=== PATIENT | female | born 1965 | race Caucasian/White ===

== ENCOUNTER → 2024-07-11 | Outpatient (CLI) | payer OTHER, SELFPAY ==
--- NOTE | 2024-07-11 10:46 | VDLE_ITS ---
Reason For Study Reason For Study: Bilateral leg pain RIGHT LEFT CFV is compressible, spontaneous, phasic, competent CFV is compressible, spontaneous, phasic, competent, and demonstrates normal augmentation. and demonstrates normal augmentation. FV is compressible, spontaneous, phasic, competent FV is compressible, spontaneous, phasic, competent and demonstrates normal augmentation. and demonstrates normal augmentation. POP V is compressible, spontaneous, phasic, competent POP V is compressible, spontaneous, phasic, competent and demonstrates normal augmentation. and demonstrates normal augmentation. T/P Trunk is compressible. T/P Trunk is compressible. PTV is compressible. PTV is compressible. RT PerV is compressible. LT PerV is compressible. GSV previously ablated. GSV previously ablated. SFJ is competent and measures 0.33 cm. SFJ is competent and measures 0.60 cm. ASV at knee is INCOMPETENT for greater than 0.5 ASV proximal calf is INCOMPETENT for greater than 0.5 seconds and measures 0.18 x 0.19 cm. seconds and measures 0.27 x 0.30 cm. SSV mid calf is competent and measures 0.22 x 0.20 INCOMPETENT gauntlet pairer noted 12 cm above medial cm. malleolus. Procedure SSV mid calf is competent and measures 0.16 x 0.18 This is a venous duplex using B-mode, color flow and cm. spectral Doppler. Exam performed in department. Patient was scanned in reverse Trendelenburg position during reflux assessment. VL/Venous Duplex US - Oliverio Extrem Interpretation Summary Deep veins of the bilateral lower extremities are patent and compressible segme ntally. There is no evidence of bilateral lower extremity deep vein thrombosis. Positive for reflux in the right accessory saphenous vein at knee. Positive for reflux in the left accessory saphenous vein in proximal calf, perf orator at medial calf. Ordering Physician: Evelyn Young Performed By: Jacklyn Hauser RVT
== END | disposition home or self-care (01) ==
LOC: CVS 10:45
PROVIDERS: Referring Provider Physician Assistant; Visit Provider Physician Assistant
DX: I87.2 Venous insufficiency (chronic) (peripheral) (principal); I83.93 Asymptomatic varicose veins of bilateral lower extremities
CPT/HCPCS: 93970